=== PATIENT | male | born 1975 | race Caucasian/White ===

== ENCOUNTER 2023-01-19 12:49 | Day surgery (SDC) | payer OTHER, SELFPAY ==
--- NOTE | 2023-01-19 | PATH_ITS ---
[facility] Accession Number: [id number] No. of containers..01 Tissue . 01 Material submitted: . rectum - RECTAL POLYP . 01 Diagnosis: Rectal Polyp, Biopsy: Traditional serrated adenoma. No high-grade dysplasia or malignancy. MRV 01/31/2023 1913 Local . 01 Electronically signed: . Basilia Lindsay MD, Pathologist NPI- [id number] . 01 Gross description: . RECTAL POLYP: Received in formalin is 2 fragment(s) of murry, soft tissue measuring 0.4 x 0.4 x 0.3 cm to 0.4 x 0.3 x 0.3 cm submitted entirely in 1 cassette(s) /AAY 01/20/2023 0540 Local . 01 Pathologist provided ICD-10: D12.8 . 01 CPT . 857924 Specimen Comment: A courtesy copy of this report has been sent to [phone] Performed at: 01 [facility] [address] [place] [address] [address], [place], [place] [id number] MD Toy Shetty MD Phone: [phone]
[2023-01-19 14:21] VITALS: BMI 29.0
[2023-01-19 14:42] VITALS: BP 147/103; PULSE 91; RESP 17; TEMP 35.7; O2SAT 97
[2023-01-19] MEDS: LACTATED RINGERS 1,000 ML 42 ML IV (14:51)
--- NOTE | 2023-01-19 15:46 | P.HP_ITS ---
History of Present Illness History of Present Illness Date Patient Seen: 01/19/23 Time Patient Seen: 15:46 Chief complaint: Colonoscopy Narrative: Amadeo is a 47-year-old man who is here for a screening colonoscopy. He has never had 1 before. He has no family history of colon cancer. [facility] Social History household members: spouse Smoking Status: Former smoker alcohol intake: current Meds Home Medications and Allergies Allergies Allergy/AdvReac Type Severity Reaction Status Date / Time No Known Drug Allergies Allergy Verified 01/19/23 14:21 Exam Vital Signs (past 8 hours): - 01/19/23 14:42 Temperature 96.3 F L Pulse Rate 91 H Respiratory Rate 17 Blood Pressure 147/103 H Pulse Oximetry 97 Oxygen Delivery Method Room Air Oxygen Delivery Method Room Air Const General: healthy appearing Assessment & Plan Assessment and plan (1) Colon cancer screening: Status: Acute Plan Amadeo is a 47-year-old man who is here for a screening colonoscopy. We reviewed the risks and benefits and he would like to proceed.
[2023-01-19 16:38] VITALS: BP 122/81; PULSE 83; RESP 16; TEMP 36.2; O2SAT 100
--- NOTE | 2023-01-19 16:38 | PM.OP.COLON ---
Operative Date/Time/Diagnoses Date of procedure: 01/19/23 Time of procedure: 16:38 Pre-op diagnosis: Colon cancer screening Post-op diagnosis: same Procedure & Clinicians Study performed: Colonoscopy Same procedure as scheduled: Yes Surgeon: Fortunato Caldwell Procedure Notes Procedure in detail: Surgeon: Fortunato Caldwell MD Anesthesia: Luis Shafer CRNA Procedure: The patient was brought to the endoscopy suite, placed in left lateral decubitus position. The patient was connected to monitoring devices. A time-out was performed. Sedation was administered. Once the patient was adequately sedated, a digital rectal exam was performed and was normal. The scope was then inserted and advanced to the cecum where the appendiceal orifice was identified and photographed. The scope was then slowly withdrawn over greater than 6 minutes. The mucosa was thoroughly inspected. There was a 7 mm polyp in the mid rectum removed with a cold snare. The scope was retroflexed in the rectum. No other abnormalities were seen. The scope was straightened and removed. The patient was awakened and brought to recovery. Scope withdrawal time: 11 minutes Sedation time: 15 minutes EBL: 5 mL Findings: 7 mm polyp in the mid rectum Post-procedure Disposition: PACU
[2023-01-19 16:52] VITALS: BP 122/64; PULSE 80; RESP 16; O2SAT 99
[2023-01-19 17:07] VITALS: BP 123/79; PULSE 79; RESP 14; TEMP 36.4; O2SAT 99
== END 2023-01-19 17:09 | disposition home or self-care (01) ==
PROVIDERS: PCP Student in an Organized Health Care Education/Training Program; Referring Provider Surgery; Visit Provider Surgery
PROC: 0DJD8ZZ Inspection of Lower Intestinal Tract, Via Natural or Artificial Opening Endoscopic (ICD-10-PCS; CPT 45378; principal; 2023-01-19 14:15)
DX: Z12.11 Encounter for screening for malignant neoplasm of colon (principal); D12.8 Benign neoplasm of rectum
CPT/HCPCS: 45385; J2704